=== PATIENT | female | born 1970 | race Caucasian/White ===

== ENCOUNTER → 2016-11-08 | Outpatient (CLI) | payer OTHER ==
[~2016-11-08] MED LIST: ALBUAER19 INH; FURO20TA PO; KRV28 PO; METO25TA3 PO; MULT-506 PO; SYMIN160 INH
[2016-11-08 09:49] LABS: CHOLESTEROL/HDL RATIO 1.9; THYROID STIMULATING HORMONE 0.976 uIu/ml (0.300-4.500)
== END | disposition home or self-care (01) ==
LOC: C.LAB 06:50
PROVIDERS: ATTEND Internal Medicine
DX: Z00.00 Encounter for general adult medical examination without abnormal findings (principal)

== ENCOUNTER → 2016-11-19 | Outpatient (CLI) | payer OTHER ==
[2016-12-03 10:59] LABS: HPV 16 RNA NOT DETECTED (NOT DETECTED); HPV 18 45 RNA NOT DETECTED (NOT DETECTED)
== END | disposition home or self-care (01) ==
LOC: C.PAPS 11:55
PROVIDERS: ATTEND Obstetrics & Gynecology
DX: Z12.4 Encounter for screening for malignant neoplasm of cervix (principal)

== ENCOUNTER → 2017-04-23 | Outpatient (CLI) | payer OTHER ==
--- NOTE | 2017-04-24 08:13 | MAMMOGRAPHY REPORT ---
BILATERAL DIGITAL SCREENING MAMMOGRAM TOMOSYNTHESIS WITH CAD: 04/23/2017 CLINICAL HISTORY: Routine screening. Patient has no complaints. TECHNIQUE: Breast tomosynthesis in addition to standard 2D mammography was performed. Current study was also evaluated with a Computer Aided Detection (CAD) system. COMPARISON: Comparison is made to exams dated: 04/17/2016 mammogram, 04/14/2015 mammogram, 04/19/2014 m ammogram, 04/19/2014 ultrasound, 04/13/2014 mammogram, and 10/09/2013 mammogram - [facility] [place]. BREAST COMPOSITION: There are scattered areas of fibroglandular density in both breasts. FINDINGS: No suspicious mass, architectural distortion or cluster of microcalcifications is seen. IMPRESSION: ACR BI-RADS CATEGORY 1: NEGATIVE There is no mammographic evidence of malignancy. A 1 year screening mammogram is recommended. The pa tient will receive written notification of the results. Approximately 10% of breast cancers are not detected with mammography. A negative mammographic report should not delay biopsy if a clinically suggestive mass is present. Melisa cordero/porsha:04/23/2017 17:36:23 Entry Writer: Luisa Moya RT(R)(M), [facility] [place] letter sent: Normal 1/2 BI-RADS Code: ACR BI-RADS Category 1: Negative
== END | disposition home or self-care (01) ==
LOC: C.MAMM 15:22
PROVIDERS: ATTEND Obstetrics & Gynecology
DX: Z12.31 Encounter for screening mammogram for malignant neoplasm of breast (principal)

== ENCOUNTER → 2017-06-21 | Outpatient (CLI) | payer OTHER ==
--- NOTE | 2017-06-21 15:28 | DIAGNOSTIC IMAGING REPORT ---
LEFT AXILLARY ULTRASOUND CLINICAL HISTORY: M79.629 Axillary tenderness Tender area on the proximal aspect of left axilla COMPARISON STUDY: None. FINDINGS: Real-time sonographic imaging of the left axilla was performed. At the patient's palpable abnormality there is a tiny linear hypoechoic area between the skin surface and subcutaneous fat. This measures less than 1 mm in thickness. This is technically too small to characterize. No fluid collections or masses identified. IMPRESSION: A tiny linear hypoechoic area between the skin surface and subcutaneous fat which measures less than 1 mm in thickness within the left axilla. This is too small to characterize and is therefore indeterminate. Electronically signed by: David Pires M.D. 06/21/2017 3:27 PM Dictated Date/Time: 06/21/2017 3:25 PM
== END | disposition home or self-care (01) ==
LOC: C.ULTR 14:11
PROVIDERS: ATTEND Physician Assistant
DX: M79.629 Pain in unspecified upper arm (principal)

== ENCOUNTER → 2017-11-25 | Outpatient (CLI) | payer OTHER | END | disposition home or self-care (01) | LOC: C.PAPS 10:00 | PROVIDERS: ATTEND Obstetrics & Gynecology | DX: R87.810 Cervical high risk human papillomavirus (HPV) DNA test positive (principal) ==

== ENCOUNTER → 2018-02-20 | Outpatient (CLI) | payer OTHER ==
[2018-02-20 10:17] LABS: BLOOD UREA NITROGEN 14 mg/dl (7-18); CALCIUM 8.7 mg/dl (8.5-10.1); CARBON DIOXIDE 28 mmol/L (21-32); CHOLESTEROL 194 mg/dl (0-200); CREATININE 0.72 mg/dl (0.60-1.20); GLUCOSE 89 mg/dl (70-99); LDL CHOLESTEROL CALCULATED 91 mg/dl; POTASSIUM 4.4 mmol/L (3.5-5.1); SODIUM 139 mmol/L (136-145)
== END | disposition home or self-care (01) ==
LOC: C.LAB 06:46
PROVIDERS: ATTEND Internal Medicine
DX: Z13.220 Encounter for screening for lipoid disorders (principal); K58.9 Irritable bowel syndrome, unspecified